=== PATIENT | male | born 1960 | race Caucasian/White ===

== ENCOUNTER 2023-07-07 09:56 | Day surgery (SDC) | payer OTHER ==
[2023-07-07] MEDS: LACTATED RINGERS 1,000 ML IV SCH (10:13)
[2023-07-07 10:35] VITALS: TEMP 98
[2023-07-07] MEDS ORDERED: LIDOCAINE 1% INJ 10MG/ML (20 ML MDV) ONE (11:04)
[2023-07-07] MEDS ORDERED: PROPOFOL 10 MG/ML 20 ML VIAL IV ONE (11:04)
--- NOTE | 2023-07-07 11:09 | P.GSHP ---
History of Present Illness H&P Date: 07/07/23 Chief Complaint: Colon cancer screening 62-year-old male here for colonoscopy. Patient had his last colonoscopy 10 years ago. No bowel complaints. No family history of colon cancer. Past Medical History History of Any Multi-Drug Resistant Organisms: None Reported Past Surgical History: No Surgical Hx Reported Additional Past Surgical History / Comment(s): colonoscopy Past Anesthesia/Blood Transfusion Reactions: No Reported Reaction Additional Past Anesthesia/Blood Transfusion Reaction / Comment(s): has only had colonoscopy Smoking Status: Never smoker Medications and Allergies Home Medications Medication Instructions Recorded Confirmed Type Cholecalciferol (Vitamin D3) 2,000 unit PO DAILY 07/02/23 07/07/23 History [Vitamin D3 (50 Mcg = 2000 Iu) Chew Tab] Multivit/Iron Sulf/Folic Acid 1 tab PO DAILY 07/02/23 07/07/23 History [Multivitamin with Iron] Ubidecarenone [Co Q-10] 300 mg PO DAILY 07/02/23 07/07/23 History Allergies Allergy/AdvReac Type Severity Reaction Status Date / Time No Known Allergies Allergy Verified 07/07/23 10:10 Surgical - Exam Vital Signs Temp Pulse Resp BP Pulse Ox 98.0 F 104 H 18 144/82 95 07/07/23 10:10 07/07/23 10:10 07/07/23 10:10 07/07/23 10:10 07/07/23 10:10 Physical exam: General: Well-developed, well-nourished HEENT: Normocephalic, sclerae nonicteric Abdomen: Nontender, nondistended Extremities: No edema Neuro: Alert and oriented Assessment and Plan (1) Colon cancer screening Narrative/Plan: Will proceed with colonoscopy at this time. Current Visit: Yes Status: Acute Code(s): Z12.11 - ENCOUNTER FOR SCREENING FOR MALIGNANT NEOPLASM OF COLON SNOMED Code(s): 011490566
--- NOTE | 2023-07-07 11:21 | P.PCN ---
Date of Procedure: 07/07/23 Procedure(s) Performed: PREOPERATIVE DIAGNOSIS: Colon cancer screening POSTOPERATIVE DIAGNOSIS: Diverticulosis PROCEDURE: Colonoscopy ANESTHESIA: MAC SURGEON: Ted Watson M.D. SPECIMENS: None ENDOSCOPIC PROCEDURE: The patient was placed on the endoscopy table in the left decubitus position. The Olympus colonoscope was inserted into the anus and passed under direct visualization to the base of the cecum. The appendiceal orifice was visualized. From that point the scope was slowly withdrawn inspe cting all surfaces carefully. There were no neoplastic inflammatory or polypoid lesions throughout the cecum, ascending, transverse, descending, sigmoid and rectum. There was minimal left-sided diverticulosis noted. Digital rectal examination was normal. The patient was taken to the recovery room in stable condition per anesthesia guidelines. RECOMMENDATIONS: Resume diet. Repeat colonoscopy 10 years.
[2023-07-07 11:47] VITALS: RESP 16
[2023-07-07 12:22] VITALS: BP 116/74; PULSE 57
== END 2023-07-07 11:54 | disposition home or self-care (01) ==
LOC: ORWHC2ENDO 09:56
PROVIDERS: ATTEND Surgery
DX: Z12.11 Encounter for screening for malignant neoplasm of colon (principal); K57.30 Diverticulosis of large intestine without perforation or abscess without bleeding; Z79.899 Other long term (current) drug therapy
CPT/HCPCS: J2001; J2704; G0121